=== PATIENT | female | born 1960 | race Caucasian/White ===

== ENCOUNTER 2019-01-08 21:07 | Inpatient (IN) ==
[2019-01-08] MEDS ORDERED: NS 1,000 ML IV ONE (22:05)
[2019-01-08] MEDS ORDERED: REGLAN IV ONE (22:05)
[2019-01-08 23:41] LABS: URINE SOURCE CLEAN CATCH
[2019-01-08 23:55] LABS: UR AMPHETAMINES QUAL NONE DETECTED (NONE DETECT); UR BARBITUATES QUAL NONE DETECTED (NONE DETECT); UR BENZODIAZEPIN QUAL NONE DETECTED (NONE DETECT); UR CANNABINOIDS QUAL NONE DETECTED (NONE DETECT); UR COCAINE QUAL NONE DETECTED (NONE DETECT); UR OPIATES QUAL NONE DETECTED (NONE DETECT); UR OXYCODONE QUAL NONE DETECTED (NONE DETECT); UR PCP QUAL NONE DETECTED (NONE DETECT)
[2019-01-08 23:56] LABS: UR METHADONE QUAL NONE DETECTED (NONE DETECT)
[2019-01-08 23:59] LABS: BASO# 0.04 X1000 (0.0-0.2); BASO% 0.3 % (0.0-0.8); EOS# 0.03 X1000 (0.0-0.7); EOS% 0.2 % (0.0-10.0); HEMATOCRIT 40.2 % (37.0-47.0); HEMOGLOBIN 13.3 g/dL (12.0-16.0); IMM GRAN# 0.05 X1000 (0.0-0.04); IMM GRAN% 0.4 % (0.0-0.5); LYMPH# 1.32 X1000 (1.2-3.4); MCH 27.7 PG (27-31); MCHC 33.1 g/dL (33-37); MCV 83.8 FL (81-99); MONO# 0.25 X1000 (0.11-0.59); MONO% 2.1 % (1.7-9.3); MPV 9.3 FL (7.4-10.4); NEUT# 10.33 X1000 (1.4-6.5); PLT 374 X1000 (130-400); RDW 13.3 % (11.5-14.5); WBC 12.02 X1000 (4.8-10.8)
[2019-01-09] MEDS ORDERED: ZOFRAN IV ONE (00:31)
[2019-01-09 00:44] LABS: BILIRUBIN URINE NEGATIVE (NEGATIVE); BLOOD URINE NEGATIVE (NEGATIVE); COLOR YELLOW; GLUCOSE URINE >1000 mg/dL (NEGATIVE); KETONE URINE 20 mg/dL (NEGATIVE); LEUKOCYTES URINE TRACE (NEGATIVE); NITRITE URINE NEGATIVE (NEGATIVE); PH URINE 5.5; PROTEIN URINE NEGATIVE (NEGATIVE); SP GRAVITY URINE 1.033; TURBIDITY URINE CLEAR (CLEAR); UR EPITHELIAL CELLS <10 /HPF (<10); URINE BACTERIA 1+ /HPF; URINE RBC <10 /HPF (<10); URINE WBC <10 /HPF (<10); UROBILINOGEN URINE NORMAL (NORMAL)
[2019-01-09] MEDS ORDERED: ROCEPHIN 1 GM in NS 50 ML IV ONE (00:59)
[2019-01-09 01:17] LABS: AGAP 14; ALB/GLOB RATIO 1.3; ALKALINE PHOSPHATASE 119 U/L (32-104); AMYLASE 27 U/L (20-200); BUN 23 mg/dL (8-22); CHLORIDE 100 mmol/L (98-107); COSMO 285; CREATININE 0.7 mg/dL (0.5-0.9); ESTIMATED GFR > 60; GLUCOSE 326 mg/dL (70-104); GOT 12 U/L (10-30); GPT 14 U/L (10-36); LIPASE 11 U/L (13-60); POTASSIUM 3.7 mmol/L (3.5-5.1); SODIUM 134 mmol/L (136-145); TCO2 20 mmol/L (25-35); TOTAL BILIRUBIN 0.21 mg/dL (0.20-1.00); TOTAL PROTEIN 7.2 g/dL (6.3-8.3)
[2019-01-09] MEDS ORDERED: COMPAZINE IV ONE (01:55)
[2019-01-09] MEDS ORDERED: NS 1,000 ML IV ONE (02:01)
--- NOTE | 2019-01-09 03:00 | PROVIDER DOCUMENTATION ---
This chart was entered by Jana Denise Scribe, acting as scribe for Mary Lou Rodas MD. HPI-Abdominal Pain/GI Problem - General Chief Complaint: Nausea/Vomiting Stated Complaint: VOMITING PRESSURE IN STOMACH Time Seen by Provider: 01/08/19 21:40 Source: patient Allergies/Adverse Reactions: Patient Allergies Allergy/AdvReac Type Severity Reaction Status Date / Time promethazine HCl * AdvReac "makes me Verified 01/08/19 21:32 [From Phenergan] crazy" Home Medications: Home Medication List Medication Instructions Recorded Confirmed Last Taken Type Metformin HCl 500 mg PO BID 10/11/17 01/09/19 10/10/17 History Metoclopramide [Reglan] 5 mg PO BID 10/11/17 01/09/19 10/10/17 History Insulin Humulin 70/30 [Humulin 20 unit SUBQ BID 11/17/17 01/09/19 Unknown History 70/30] - History of Present Illness-ABD Nature of Presenting Problems: [id number] c/o v/n, diaphoresis, and malaise. pt has hx of dm and gastroparesis, pt vomited x 5 yesterday, once tues and started vomiting again today after work. pt sts felt fine at work but began feeling sick. pt usually takes reglan for gastroparesis, got rx around 2017 while admitted to [place] for similar symptoms. pt has had similar symptoms previously. pt doesn't have insurance and no longer has a PCP. pt has allergy to phenergan. pt denies diarrhea, constipation or fevers. Denies abd pain. Quality of Pain: reports: none Onset/Duration: reports: 4 days ago Timing: reports: still present Last BM: unsure Rectal Bleeding: reports: none # of Vomiting Episodes: 6 (5x yest, 1 x fatou, started vomiting againa today ) Emesis Description: reports: clear Review of Systems - Adult - REVIEW OF SYSTEMS - ADULT Constitutional: reports: no symptoms reported. denies: fever, fatique Eyes: reports: no symptoms reported Ears, Nose, Mouth & Throat: reports: no symptoms reported Cardiovascular: reports: no symptoms reported Respiratory: reports: no symptoms reported Gastrointestinal: reports: see HPI, nausea, vomiting. denies: abdominal pain, constipation, diarrhea Genitourinary: reports: no symptoms reported Musculoskeletal: reports: no symptoms reported Integumentary: reports: no symptoms reported Neurological: reports: no symptoms reported Psychiatric: reports: no symptoms reported Endocrine: reports: see HPI, excessive sweating, cold intolerance. denies: goiter, increased thirst, polyuria Hematologic/Lymphatic: reports: no symptoms reported Allergic/Immunologic: reports: no symptoms reported All Other Systems: Reviewed and Negative Past History - Adult - PAST MEDICAL HISTORY-ADULT Review of Records: reports: Old Records Reviewed, Nursing Assessment Review, Medications Reviewed, Social history reviewed & non-contributory. Major Childhood Illnesses: reports: denies history Cardiovascular: reports: HTN Respiratory: reports: denies history Gastrointestinal: reports: other (gastroparesis) Obstetrical/Gynecological: reports: denies history Genitourinary: reports: denies history Musculoskeletal: reports: denies history Neurological: reports: denies history Endocrine/Immune: reports: Diabetes Other Conditions: reports: denies history - PRIOR SURGERIES/PROCEDURES Surgical/Procedure History: reports: , orthopedic (extremity) (fibula/ ankle ) - PRIOR HOSPITALIZATIONS Prior Hospitalizations: reports: for other non-related - IMMUNIZATION STATUS Childhood Immunizations: See Nurse Assessment Flu Vaccine: See Nurse Assessment - FAMILY HISTORY Family History: reviewed, not pertinent - SOCIAL HISTORY Smoking: non-smoker Substance Use: none/never Physical Exam-General - PHYSICAL EXAM-ADULT Initial Vital Signs Reviewed: Yes - CONSTITUTIONAL General Appearance: alert, mild distress, other (actively vomiting in triage and upon interview). negative: cachetic, lethargic, slow to respond - EYES Eyes: PERRL/EOMI, pink conjunctivae - HEAD, EARS, NOSE, MOUTH & THROAT HENMT: normocephalic/atraumatic, normal ENT inspection - NECK Neck: non-tender, full range of motion, supple, normal inspection - RESPIRATORY Respiratory: chest non-tender, lungs clear, normal breath sounds - CARDIOVASCULAR Cardiovascular: normal peripheral pulses, regular rate, rhythm - GASTROINTESTINAL (ABDOMEN) Abdominal Exam: normal bowel sounds, non tender, soft. negative: abnormal bowel sounds, distended, tenderness - MUSCULOSKELETAL Back Exam: normal inspection, no CVA tenderness, no vertebral tenderness Extremity: normal range of motion, non-tender, normal inspection - SKIN Integumentary: normal color, normal turgor, warm/dry - NEUROLOGIC Neurologic: grossly normal, no motor/sensory deficits - PSYCHIATRIC Psych/Mental Status: normal mood/affect, normal thought content, normal thought process, oriented x 3 Progress - PLAN OF CARE/RESULTS Progress/Plan/Lab Results: Vital Signs - 8 hr 01/08/19 21:29 Temperature 98.5 F Pulse Rate 68 Respiratory Rate 18 Blood Pressure 177/84 O2 Sat by Pulse Oximetry 98 Patient with multiple reeval and still having nausea and vomiting despite mult medications. She has been admitted and seen in the ED many times for this. CT not showing anything acute. UA weakly positive for UTI so will treat. GLucose also did not come down with IVF but didnt want to give too much insulin as patient is NPO at this time. Spoke to Dr Dunbar, box person for hospitalist who accepted patient for admission for intractable nausea and vomiting. Further orders to be placed by their team. Result Diagrams: 01/08/19 23:35 01/08/19 00:24 - CT/MRI 1 CT Study: Abdomen (slightly increased heaptmegaly otherwise no acute findings) - CONSULTS/PCP/HOSPITALIST Notification #1 *Consult/PCP/Hospitalist*: Dr Dunbar Time Discussed: 02:54 Consult Disposition: Admit Departure - Departure Date of Disposition Decision: 01/09/19 Time of Disposition Decision: 02:54 DIAGNOSIS: Diabetic gastroparesis, Intractable nausea and vomiting, UTI (urinary tract infection), Hyperglycemia Disposition: ADMITTED INPATIENT 09 Certified Medical Emergency: Emergent Condition: Stable - Critical Care Note This patient required my direct & personal management of CC.: No Attestation - Physician/ BRENDA Attestation Patient care was provided by Advanced Practice Provider:: No The physician spent face to face time with patient:: Yes Advanced Practice Provider documentation review:: Supervising physician onsite and consulted in the evaluation and care of this patient. The physician did have a face to face encounter with the patient. This chart was documented by the indicated scribe, (Jana Denise Scribe) and accurately reflects the services I performed and decisions made by me, Mary Lou Rodas MD, as attested by the provider's signature.
--- NOTE | 2019-01-09 06:32 | HISTORY AND PHYSICAL ---
PRIMARY CARE PHYSICIAN: None. CHIEF COMPLAINT: Nausea, vomiting, weakness times past 4 days. HISTORY OF PRESENTING ILLNESS: A 58-year-old female with a history of diabetes mellitus type 2, gastroparesis, who presented to emergency department with 4-days history of having worsening nausea, vomiting, and weakness. The patient states that her symptoms were not subsiding and she became more weak and, subsequently, had come to the emergency department. In the ED, she was evaluated. She was given antiemetics, however, she did not have much improvement. Due to her presenting symptoms, it was thought that we will place in for observation for further evaluation and management. At the time of my examination, patient denied any headache, vision changes, fevers, chills, chest pain, shortness of breath, or any weight changes, but complained of nausea, vomiting, and weakness. PAST MEDICAL HISTORY: Includes diabetes mellitus type 2, gastroparesis. PAST SURGICAL HISTORY: Right leg surgery. ALLERGIES: Phenergan. CURRENT MEDICATIONS: Include Humulin 70/30 at 28 units subcu b.i.d., metformin 500 mg p.o. b.i.d., Reglan 5 mg p.o. b.i.d. SOCIAL HISTORY: She denies any history of smoking, alcohol, or illicit drug use. FAMILY HISTORY: Positive for coronary disease in Father. REVIEW OF SYSTEMS: Fourteen-point review of systems is as in HPI. Other systems negative. PHYSICAL EXAMINATION: GENERAL: Cooperative, friendly female. She is resting more comfortably now. VITAL SIGNS: Temperature 98.5 degrees, pulse 68, respiration 18, blood pressure 177/84. HEENT: Atraumatic, normocephalic. Extraocular movements intact. PERRLA. NECK: No masses. CHEST: Clear to auscultation. CARDIOVASCULAR: Regular rate and rhythm. ABDOMEN: Soft. Positive bowel sounds. EXTREMITIES: No edema. NEUROLOGIC: He is awake, alert, oriented x3. GENITOURINARY: No bladder distention. SKIN: Warm. LABORATORIES AND STUDIES: WBC 12.02, hemoglobin 13.2, hematocrit 40.2, platelets 374,000. Sodium 134, potassium 3.7, chloride 100, CO2 is 20, BUN is 23, creatinine 0.7. Glucose is 326. UA is negative for nitrites. ASSESSMENT: This is a 58-year-old female with a history of diabetes mellitus type 2 and gastroparesis, who had presented to emergency department with intractable nausea, vomiting for the past 4 days. She was evaluated in the emergency department. She was given antiemetics, however, she only had minimal improvement. Due to her presenting symptoms, we will place in for observation for further evaluation and management. 1. Intractable nausea, vomiting. 2. Diabetes mellitus type 2. 3. Gastroparesis. PLAN: 1. We will admit patient to medical floor with telemetry. 2. Continue supportive treatment with IV fluids, antiemetics as needed. 3. We will monitor blood glucose and put patient on sliding scale insulin regimen. 4. If the patient does not improve, will consult Gastroenterology for further evaluation of her gastroparesis. 5. Put patient on DVT prophylaxis with SCDs. 6. We will continue to follow and reassess, make further recommendation based on patient's clinical course. cc: Taye Dunbar MD
[2019-01-09] MEDS ORDERED: ZOFRAN IV PRN (06:34)
[2019-01-09] MEDS: HUMULIN R SUBQ SCH ×4 (08:29→22:13)
[2019-01-09] MEDS: REGLAN PO SCH ×2 (08:31→20:26)
[2019-01-09] MEDS: NS 1,000 ML IV SCH ×2 (08:31→17:57)
--- NOTE | 2019-01-09 10:38 | Diag Imaging Result Doc PS360 ---
EXAM: CT ABD/PELVIS W/IV CONT ONLY INDICATION: intractable n/v TECHNIQUE: This exam was performed using automated exposure control, adjustment of mA or kV according to patient size, and/or use of iterative reconstruction technique. COMPARISON: 01/04/2016 FINDINGS: There is mild subsegmental atelectasis at the lung bases. The gallbladder is unremarkable. The liver, gallbladder, spleen, pancreas, and adrenal glands are unremarkable. There is a tiny nonobstructing intrarenal stone on the right. The kidneys are unremarkable, otherwise. The urinary bladder appears normal. The reproductive tract is unremarkable as imaged. There are a few scattered colonic diverticula. There is no evidence of diverticulitis. The appendix is normal. No bowel wall thickening or bowel obstruction is appreciated. No focal inflammatory changes, free abdominal gas, or free fluid is identified. The bony structures are grossly intact. IMPRESSION: Essentially stable CT of the abdomen and pelvis with no evidence of acute pathology. Electronically signed by Regino Denise 01/09/2019 10:36 AM
--- NOTE | 2019-01-09 13:34 | PROGRESS NOTE ---
DATE: 01/09/2019 SUBJECTIVE: Mrs. Pascal has no primary care physician. She presented early this morning. A 53- year-old with a history of diabetes mellitus type 2, gastroparesis, who presented to the emergency department with a 4-day history of having worsening nausea, vomiting, weakness. States that her symptoms were not subsiding, and that she became more weak, and then came to the emergency department. She was given some antiemetics, started on some fluid. PAST MEDICAL HISTORY: 1. Diabetes mellitus type 2. 2. Gastroparesis. PAST SURGICAL HISTORY: Right leg surgery. PHYSICAL EXAMINATION: General: Today, she is still nauseated, sleepy. She was easy to arouse and alert and oriented x3. Vital Signs: Temp 98.7 degrees, pulse 72, respirations 16, blood pressure 111/57. HEENT: Pupils are equal round. Lungs: Clear in all lung ball. Cardiovascular: Regular rhythm and rate without murmur or S3. Abdomen: Soft. Skin: Warm and dry. IMAGING AND LABORATORY DATA: White count 12,020, hematocrit is 40, platelet count 374,000. Electrolytes: Sodium 134, potassium 3.7, chloride 100, BUN 23, creatinine 0.7. Drug screen was negative. Urinalysis unremarkable. Abdominal and pelvic CT: Essentially stable CT of the abdomen and pelvis. No evidence of acute pathology. ASSESSMENT AND PLAN: 1. Suspect viral gastroenteritis, but she also has gastroparesis and nausea. Continue present intravenous fluids and antiemetics. She may benefit from some Reglan. 2. Diabetes mellitus type 2. 3. Gastroparesis. Will give her some clear liquids. cc: Mickey Lance MD
[2019-01-10] MEDS: NS 1,000 ML IV SCH (05:50)
[2019-01-10] MEDS: HUMULIN R SUBQ SCH ×2 (06:53→13:22)
[2019-01-10 07:12] VITALS: BP 147/70
[2019-01-10 07:15] LABS: BASO# 0.03 X1000 (0.0-0.2); BASO% 0.3 % (0.0-0.8); EOS# 0.25 X1000 (0.0-0.7); EOS% 2.6 % (0.0-10.0); HEMATOCRIT 35.4 % (37.0-47.0); HEMOGLOBIN 11.3 g/dL (12.0-16.0); IMM GRAN# 0.03 X1000 (0.0-0.04); IMM GRAN% 0.3 % (0.0-0.5); LYMPH# 3.92 X1000 (1.2-3.4); LYMPH% 40.1 % (20.5-51.1); MCH 27.8 PG (27-31); MCHC 31.9 g/dL (33-37); MONO# 0.47 X1000 (0.11-0.59); MONO% 4.8 % (1.7-9.3); MPV 9.2 FL (7.4-10.4); NEUT# 5.08 X1000 (1.4-6.5); NEUT% 51.9 % (42.2-75.2); PLT 301 X1000 (130-400); RBC 4.07 XMIL (4.2-5.4); RDW 13.4 % (11.5-14.5); WBC 9.78 X1000 (4.8-10.8)
[2019-01-10 07:21] LABS: AGAP 10; BUN 12 mg/dL (8-22); CALCIUM 8.2 mg/dL (8.8-10.2); CHLORIDE 108 mmol/L (98-107); COSMO 281; CREATININE 0.5 mg/dL (0.5-0.9); ESTIMATED GFR > 60; GLUCOSE 137 mg/dL (70-104); POTASSIUM 3.5 mmol/L (3.5-5.1); SODIUM 140 mmol/L (136-145); TCO2 22 mmol/L (25-35)
[2019-01-10] MEDS: REGLAN PO SCH (09:49)
--- NOTE | 2019-01-10 10:42 | DISCHARGE SUMMARY ---
ADMISSION DATE: 01/09/2019 DISCHARGE DATE: 01/10/2019 She presented with nausea, vomiting, weakness x4 days. A 58-year-old with history of diabetes mellitus type 2, gastroparesis, presented to the emergency room with 4-day history of having worsening nausea and vomiting. Symptoms were not subsiding, so came here to the emergency room. We gave her some IV fluids. She does have a history of gastroparesis. The nausea seemed to improve, and we are going to advance her to a diabetic diet. I suspect she has viral gastroenteritis, and plan to let her go home. Her cultures were unremarkable, and no sign of bacterial infection, such as pneumonia or acute cystitis, so will plan to let her go home. Continue her home medicines. She takes Humulin 70/30, 20 units subcutaneously b.i.d., metformin 500 mg b.i.d., and Reglan 5 mg b.i.d. cc: Mickey Lance MD
== END 2019-01-10 14:47 | disposition home or self-care (01) | DRG 392 ==
LOC: ED 21:07 → SUATTDRO 01-09 05:29 → 3N 01-09 05:29
PROVIDERS: ATTEND Emergency Medicine